=== PATIENT | female | born 1975 | race Caucasian/White ===

== ENCOUNTER 2018-08-07 21:12 | Emergency (ER) | payer OTHER, MEDICAID, SELFPAY ==
--- NOTE | 2018-08-07 21:21 | ED.GENADULT ---
HPI - General Adult General Chief complaint: Altered Mental Status Stated complaint: Altered Mental Status Time Seen by Provider: 08/07/18 21:16 Source: EMS Mode of arrival: EMS Limitations: altered mental status History of Present Illness HPI narrative: 42-year-old female brought in by EMS. They were called to a local restaurant secondary to the fact that the patient seemed to have passed out and fell off her chair while eating there. EMS reports that the police dropped the patient off the local restaurant. I am unsure as to how the police came in contact with the individual or healthy individual came to be dropped off at the restaurant. EMS reports that she was sitting there eating some chocolate cake when she apparently fell off of the chair she was sitting in. EMS was called by the restaurant staff. When they arrived they stated that the patient was ambulatory. They stated that they were told that the patient does take methadone but they are unsure if this was the issue. They did state that she seemed to be confused. Related Data Home Medications Medication Instructions Recorded Confirmed Unobtainable 08/07/18 08/07/18 Allergies Allergy/AdvReac Type Severity Reaction Status Date / Time No Allergy Information Allergy Verified 08/07/18 21:30 Available Review of Systems Review of Systems unobtainable due to mental condition and unobtainable due to mental status [facility] Comment: Unable to obtain past medical family surgical or social history secondary to patient's mental status Exam Initial Vital Signs Initial Vital Signs: Vital Signs Temperature 97.7 F 08/07/18 21:24 Pulse Rate 69 08/07/18 21:24 Respiratory Rate 12 08/07/18 21:24 Blood Pressure 101/69 08/07/18 21:24 Pulse Oximetry 98 08/07/18 21:24 Const General: No cooperative, well developed and No well groomed Orientation: awake and not oriented x3 Limitations: altered mental status HENMT Head: normal to inspection and normocephalic Eyes Pupils: PERRL Resp Effort & Inspection: normal respiratory effort Auscultation: clear to auscultation bilaterally Cardio Rate: regular rate Rhythm: regular rhythm Pulses: radial pulses present GI Inspection: non-distended Palpation: soft and No firm Skin Lesions: no lesions Rashes: no rashes Neuro General: awake, not oriented, confused and unable to assess gait Speech: abnormal speech Other: Four extremities spontaneously Extrem General: normal to inspection and capillary refill normal Psych Appearance: disheveled Scores GCS Avery coma scale eye opening: Spontaneous Avery coma scale verbal response: Words Avery coma scale motor response: Localising [place] coma scale total score: 12 Course Orders Ordered: ED Orders 08/07/18 22:00 Acetaminophen Stat Ammonia (NH3) Stat Complete Blood Count AUTO DIFF Stat Comprehensive Metabolic Panel Stat Ethanol (ETOH) Stat Lactate (Lactic Acid) Stat Lipase Stat Partial Thromboplastin Time Stat Prothrombin Time INR Stat Salicylate Stat Thyroid Stimulating Hormone Stat Vital Signs - 8 hr 08/08/18 00:40 Pulse Rate 67 Respiratory Rate 15 Blood Pressure [Left Arm] 92/43 L Pulse Oximetry 96 Medical Decision Making Lab Data Lab results reviewed: Yes I reviewed the patient's lab results. Result diagrams: 08/07/18 22:00 08/07/18 22:00 Lab Results 08/07/18 08/07/18 08/07/18 Range/Units 22:00 22:00 22:00 WBC 4.9 (4.5-11.0) X10^3/uL RBC 3.95 L (4.0-5.2) X10^6/uL Hgb 10.0 L (12.0-16.0) g/dL Hct 30.7 L (36-46) % MCV 77.7 L (80-100) fL MCH 25.4 L (26-34) PG MCHC 32.7 (30-36) % RDW 18.0 H (11.6-14.8) % Plt Count 172 (150-400) X10^3/uL Neut % (Auto) 59.9 (50-75) % Lymph % (Auto) 18.8 L (25-40) % [place] % (Auto) 13.6 (3-14) % Eos % (Auto) 7.1 H (2-4) % Baso % (Auto) 0.6 (0-2) % Neut # (Auto) 2900 L (7099-1364) /uL PT 11.3 (10.1-12.7) SECONDS INR 1.0 (0.9-1.3) APTT 36 (26.4-36.2) SECONDS Sodium 143 (137-145) mmol/L Potassium 3.9 (3.4-5.1) mmol/L Chloride 102 (98-107) mmol/L Carbon Dioxide 32 (22-32) mmol/L BUN 26 H (7-17) mg/dL Creatinine 0.80 (0.52-1.04) mg/dL Estimated GFR > 60.0 (>60) mL/min BUN/Creatinine Ratio 32.5 H (6-22) Glucose 93 (70-100) mg/dL Lactate (0.7-2.1) mmol/L Calcium 8.5 (8.4-10.2) mg/dL Total Bilirubin 0.4 (0.2-1.3) mg/dL AST 34 (14-36) IU/L ALT 23 (9-52) IU/L Alkaline Phosphatase 78 (38-126) U/L Ammonia (9-30) umol/L Total Protein 7.1 (6.3-8.2) g/dL Albumin 3.8 (3.5-5.0) g/dL Globulin 3.3 (1.7-4.1) g/dL Albumin/Globulin Ratio 1.2 (1.0-2.8) Lipase 37 (23-300) U/L TSH (0.47-4.68) uIU/mL Salicylates < 1.0 (<20) mg/dL Acetaminophen < 10 L (10-30) ug/mL Ethyl Alcohol < 10 mg/dL 08/07/18 08/07/18 08/07/18 Range/Units 22:00 22:00 22:00 WBC (4.5-11.0) X10^3/uL RBC (4.0-5.2) X10^6/uL Hgb (12.0-16.0) g/dL Hct (36-46) % MCV (80-100) fL MCH (26-34) PG MCHC (30-36) % RDW (11.6-14.8) % Plt Count (150-400) X10^3/uL Neut % (Auto) (50-75) % Lymph % (Auto) (25-40) % [place] % (Auto) (3-14) % Eos % (Auto) (2-4) % Baso % (Auto) (0-2) % Neut # (Auto) (1482-9656) /uL PT (10.1-12.7) SECONDS INR (0.9-1.3) APTT (26.4-36.2) SECONDS Sodium (137-145) mmol/L Potassium (3.4-5.1) mmol/L Chloride (98-107) mmol/L Carbon Dioxide (22-32) mmol/L BUN (7-17) mg/dL Creatinine (0.52-1.04) mg/dL Estimated GFR (>60) mL/min BUN/Creatinine Ratio (6-22) Glucose (70-100) mg/dL Lactate 0.9 (0.7-2.1) mmol/L Calcium (8.4-10.2) mg/dL Total Bilirubin (0.2-1.3) mg/dL AST (14-36) IU/L ALT (9-52) IU/L Alkaline Phosphatase (38-126) U/L Ammonia 27.0 (9-30) umol/L Total Protein (6.3-8.2) g/dL Albumin (3.5-5.0) g/dL Globulin (1.7-4.1) g/dL Albumin/Globulin Ratio (1.0-2.8) Lipase (23-300) U/L TSH 4.78 H (0.47-4.68) uIU/mL Salicylates (<20) mg/dL Acetaminophen (10-30) ug/mL Ethyl Alcohol mg/dL Point of Care Testing Glucose POC 96 Point of care testing: Point of Care Testing Glucose POC [address] scan - head: Radiologist's impression: Acute intracranial process identified ECG Data Attestation: I personally reviewed and interpreted this ECG as follows: Prior ECG tracings: not available for review Interpretation: Sinus rhythm ventricular rate is 64 Normal axis Normal QRS Normal QTC No ST T wave changes MDM Narrative Medical decision making narrative: Patient is signs of trauma. She was maintaining her airway. Alcohol level was negative. Head CT was unremarkable. Patient was not given Narcan here in the emergency department secondary to her lack of respiratory distress. I do suspect based on the history that we obtained from EMS that this is most likely a substance abuse/intoxication. Will observe the patient here in the emergency department for clinical sobriety. Social work consult placed. 0330: Patient ambulate to the bathroom some assistance. She did admit to using benzos yesterday and also methadone. Will continue to monitor here in the ER Patient has remained stable throughout the emergency department and has become more alert and oriented. She states that she did take benzodiazepines yesterday along with the methadone. She states she is from [place]. She states she does not know how she got to [place]. Waiting social staff worker consult. Care turned over to day provider change of shift for disposition Discharge Plan Departure Patient Disposition: Home Clinical Impression: Altered mental status, Intoxication by drug Instructions: DI for Drug Abuse and Drug Addiction Activity Restrictions/Additional Instructions: You need to contact your primary care doctor for a follow-up. You can return to the emergency department at any time for new or worsening symptoms Prescriptions: No Action Unobtainable RF: 0
[2018-08-07 21:24] VITALS: BP 101/69; PULSE 69; RESP 12; TEMP 36.5; O2SAT 98
--- NOTE | 2018-08-07 21:26 | DI.CT.S_ITS ---
PROCEDURE: CT HEAD/BRAIN WO CON INDICATIONS: Acute mental status changes. TECHNIQUE: Noncontrast 4.5 mm thick angled axial sections acquired from the foramen magnum to the vertex, with coronal and sagittal reformats. For radiation dose reduction, the following was used: automated exposure control, adjustment of mA and/or kV according to patient size. COMPARISON: None. FINDINGS: Image quality: Excellent. CSF spaces: Basal cisterns are patent. No extra-axial fluid collections. Ventricles are normal in size and shape. Brain: No midline shift. No intracranial masses or hemorrhage. Hernández-white matter interface is normal. Skull and face: Calvarium and visualized facial bones are intact, without suspicious lesions. Sinuses: The small air-fluid level noted in the left maxillary sinus. The mastoids are clear. IMPRESSION: No acute intracranial disease process. Dictated by: Sadie Cueva MD, PhD on 08/08/2018 at 7:05 Approved by: Sadie Cueva MD, PhD on 08/08/2018 at 7:07
[2018-08-07 22:17] LABS: Add Manual Diff / Slide Review NO; Basophils Percent Auto 0.6 % (0-2); Eosinophils Percent Auto 7.1 % (2-4); Hematocrit 30.7 % (36-46); Lymphocytes Percent Auto 18.8 % (25-40); Mean Corpuscular HGB Conc 32.7 % (30-36); Mean Corpuscular Hemoglobin 25.4 PG (26-34); Mean Corpuscular Volume 77.7 fL (80-100); Monocytes Percent Auto 13.6 % (3-14); Neutrophils Absolute Auto 2900 /uL (3000-5900); Neutrophils Percent Auto 59.9 % (50-75); Platelet Count 172 X10^3/uL (150-400); Red Blood Cell Count 3.95 X10^6/uL (4.0-5.2); White Blood Cell Count 4.9 X10^3/uL (4.5-11.0)
[2018-08-07 22:21] LABS: Prothrombin Time 11.3 SECONDS (10.1-12.7)
[2018-08-07 22:23] LABS: PTT Partial Thromboplastin Tim 36 SECONDS (26.4-36.2)
[2018-08-07 22:24] LABS: Lactate (Lactic Acid) 0.9 mmol/L (0.7-2.1)
[2018-08-07 22:41] LABS: Acetaminophen < 10 ug/mL (10-30); Alanine Aminotransferase 23 IU/L (9-52); Albumin 3.8 g/dL (3.5-5.0); Albumin Globulin Ratio 1.2 (1.0-2.8); Alkaline Phosphatase 78 U/L (38-126); Aspartate Aminotransferase 34 IU/L (14-36); BUN Creatinine Ratio 32.5 (6-22); Bilirubin Total 0.4 mg/dL (0.2-1.3); Blood Urea Nitrogen 26 mg/dL (7-17); Calcium 8.5 mg/dL (8.4-10.2); Carbon Dioxide 32 mmol/L (22-32); Chloride 102 mmol/L (98-107); Estimated Glomerular Filt Rate > 60.0 mL/min (>60); Ethanol (ETOH) < 10 mg/dL; Globulin 3.3 g/dL (1.7-4.1); Glucose 93 mg/dL (70-100); HEMOLYSIS < 15 (0-50); Lipase 37 U/L (23-300); Potassium 3.9 mmol/L (3.4-5.1); Salicylate < 1.0 mg/dL (<20); Sodium 143 mmol/L (137-145); Total Protein 7.1 g/dL (6.3-8.2)
--- NOTE | 2018-08-07 23:02 | PC.NURSE ---
contacted by PD r/t AMS, reported as drowsy but oriented, ambulatory at that time approx 2 hours prior to EMS contact, EMS called r/t pt falling asleep while eating meal in cage, EMS reports ambulatory to [facility] on scene, on exam pt is snoring, rouses to loud verbal, mumbled speech, normal resp rate/depth, maintaining 96-97% spo2 on room air, no obvious sign of trauma, pt became agitated/yelling when asked do you need narcan? by nurse, placed on monitor in high vis room
[2018-08-07 23:11] LABS: Thyroid Stimulating Hormone 4.78 uIU/mL (0.47-4.68)
[2018-08-08 00:40] VITALS: BP 92/43; PULSE 67; RESP 15; O2SAT 96
--- NOTE | 2018-08-08 02:24 | PC.NURSE ---
pt resting on stretcher with eyes closed. pt is moving all four limbs freely in the stretcher and is positioning self for comfort. pt is arousable by voice, makes eye contact, mumbles a few words and falls back to sleep. pt on monitor
--- NOTE | 2018-08-08 03:42 | PC.NURSE ---
pt is now fully awake. pt admitted taking benzos last night but does not remember many details. She remembers getting help from law enforcment and also remembers passing out in her chocolate cake twice. She initially only knew she was in a hospital but did not know what town the hospital is in. She ambulated to the restroom. she asked for food and water and was given a whole sandwich and 2 rebeca ales. pt is concerned how she will get back to [place].
[2018-08-08 06:40] VITALS: BP 101/66; PULSE 77; O2SAT 98
--- NOTE | 2018-08-11 18:05 | PC.NURSE ---
Attempted follow up call. Wrong number
== END 2018-08-08 08:03 | disposition home or self-care (01) ==
PROVIDERS: Emergency Medicine; Emergency Provider Emergency Medicine
DX: F19.929 Other psychoactive substance use, unspecified with intoxication, unspecified (principal); R41.82 Altered mental status, unspecified
CPT/HCPCS: 70450; 80053; 80320; 80329; 82140; 82962; 83605; 83690; 84443; 85025; 85610; 85730; 93005; 99283; 99285; G0480